=== PATIENT | female | born 1995 | race Caucasian/White ===

== ENCOUNTER → 2017-07-07 | Outpatient (CLI) | payer BC ==
[~2017-07-07] MED LIST: DOXY1TAB6 PO
== END | disposition home or self-care (01) ==
LOC: C.PAPS 11:23
PROVIDERS: ATTEND Physician Assistant
DX: Z01.419 Encounter for gynecological examination (general) (routine) without abnormal findings (principal)

== ENCOUNTER → 2017-08-21 | Outpatient (CLI) | payer BC, OTHER ==
--- NOTE | 2017-08-21 16:26 | DIAGNOSTIC IMAGING REPORT ---
KUB HISTORY: ACUTE RIGHT FLANK PAIN COMPARISON: None. FINDINGS: The bowel gas pattern is unremarkable. There are no dilated loops of small bowel to suggest an obstruction. No renal calculi. No ureteral calculi. No pneumoperitoneum or pneumatosis. IMPRESSION: No renal or ureteral stones. Electronically signed by: Hubert Newton M.D. 08/21/2017 4:25 PM Dictated Date/Time: 08/21/2017 4:24 PM
== END | disposition home or self-care (01) ==
LOC: C.RAD1850 15:58
PROVIDERS: ATTEND Internal Medicine
DX: R10.9 Unspecified abdominal pain (principal)

== ENCOUNTER → 2017-08-21 | Outpatient (CLI) | payer BC, OTHER ==
[2017-08-21 18:21] LABS: URINE APPEARANCE CLOUDY (CLEAR); URINE BILIRUBIN NEG (NEG); URINE COLOR YELLOW; URINE EPITHELIAL CELL AUTO >30 /lpf (0-5); URINE NITRITE NEG (NEG); URINE SPECIFIC GRAVITY 1.017 (1.000-1.030); UROBILINOGEN NEG (NEG); ZZUR CULT IF INDIC CLEAN CATCH YES
[2017-08-21 18:23] LABS: MANUAL MICROSCOPIC REQUIRED? NO; REVIEW REQ? NO
== END | disposition home or self-care (01) ==
LOC: C.LABSPEC 17:13
PROVIDERS: ATTEND Internal Medicine
DX: R35.0 Frequency of micturition (principal)

== ENCOUNTER → 2017-10-09 | Outpatient (CLI) | payer BC | END | disposition home or self-care (01) | LOC: C.LABBC 13:02 | PROVIDERS: ATTEND Internal Medicine | DX: R35.0 Frequency of micturition (principal) ==

== ENCOUNTER → 2018-04-24 | Outpatient (CLI) | payer BC | END | disposition home or self-care (01) | LOC: C.LAB 17:32 | PROVIDERS: ATTEND Nurse Practitioner Family | DX: R31.0 Gross hematuria (principal) ==

== ENCOUNTER → 2018-05-14 | Outpatient (CLI) | payer BC ==
[~2018-05-14] MED LIST changes: +OPTIRAY 320 IV PRN
--- NOTE | 2018-05-14 14:27 | DIAGNOSTIC IMAGING REPORT ---
CT UROGRAM CLINICAL HISTORY: Gross hematuria. Painful micturition. COMPARISON STUDY: Abdominal CT dated 09/26/2013. TECHNIQUE: Before and following the IV administration of 119 cc of Optiray 320, CT urogram of the abdomen and pelvis is performed from the lung bases to the proximal femora. Images are reviewed in the axial, sagittal, and coronal planes. IV contrast was administered without complication. A dose lowering technique was utilized adhering to the principles of ALARA. CT DOSE: 1286.68 mGycm FINDINGS: Lung bases: The heart is normal in size and without pericardial effusion. The lung bases are clear. Liver: The contrast-enhanced liver is normal in size, contour, and attenuation. There is no intrahepatic biliary ductal dilatation. The hepatic veins and portal veins are patent. Gallbladder: Unremarkable. Spleen: Normal in size and attenuation. Pancreas: Unremarkable. Adrenal glands: Unremarkable. Kidneys and ureters: The contrast enhanced kidneys are normal in size and without hydronephrosis. There are no renal calculi identified on the unenhanced images. The kidneys enhance and excrete symmetrically. There is no enhancing renal cortical mass lesion identified. A subcentimeter cortical hypodensity in the right kidney likely represents a cyst but is too small for definitive characterization. There is no evidence of urothelial lesion within the renal pelvis bilaterally or along the course of either ureter. Abdominal vasculature: The abdominal aorta is normal in course and caliber. Bowel: The small bowel and colon are normal in course and caliber. The appendix is well-visualized and normal. Peritoneum: There is no intraperitoneal free air or abdominal ascites. There is a small fat-containing umbilical hernia. Lymphadenopathy: None. Pelvic viscera: The bladder, uterus, and adnexa are normal as visualized. There are bilateral ovarian follicles. Trace fluid is seen in the cul-de-sac. Skeletal structures: No lytic or blastic lesions are seen. IMPRESSION: 1. Normal CT urogram. 2. Trace free fluid in cul-de-sac is nonspecific and likely within physiologic limits. Electronically signed by: Godfrey Thomas M.D. 05/14/2018 2:25 PM Dictated Date/Time: 05/14/2018 2:18 PM
== END | disposition home or self-care (01) ==
LOC: C.CTS 13:41
PROVIDERS: ATTEND Urology
DX: R31.0 Gross hematuria (principal)

== ENCOUNTER 2024-05-09 05:49 | Inpatient (IN) ==
--- NOTE | 2024-05-06 15:33 | Anesthesiology Consultation ---
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 Chart Review Chart Review: entry level chemist initiated History Surgery Operation Date: 05/09/24 07:30 Proposed Procedures p Section (Delivery of Baby Through Abdominal Incision) - Kristie Carreno, DO Height/Weight Height: 5 ft 7 in Weight: 112.491 kg Allergies Allergy/AdvReac Type Severity Reaction Status Date / Time No Known Allergies Allergy Unverified 05/06/24 15:05 Medications Home Medications Medication Instructions Recorded Confirmed Last Taken albuterol sulfate 90 mcg/actuation 2 puff inhalation QID PRN sob 05/06/24 05/06/24 Unknown aerosol inhaler aspirin 81 mg capsule 81 mg PO DAILY 05/06/24 05/06/24 Unknown vit no.133-ferrous 1 tab PO DAILY 05/06/24 05/06/24 Unknown fumarate 28 mg-folic acid 800 mcg tablet () Past Medical History Medical History (Updated 05/06/24 @ 15:32 by Annmarie Falk PA-C) Asthma rare use prn inhaler, "only if sick" History of COVID-19 (2021) no hosp; resolved Past Family History Family History Father Hypertension Mother Hypothyroid Denies family history of Ovarian cancer Breast cancer Colorectal cancer Past Surgical History Surgical History S/P tonsillectomy S/P wisdom tooth extraction Social History Smoking Status: Former smoker Do You Dip or Chew Tobacco: No Smoking End Date: quit 08/2023 Hx Alcohol Use: Yes Hx Substance Use: No substance use type: does not use
--- NOTE | 2024-05-08 16:58 | History & Physical Report ---
Date of Service May 08, 2024 Assessment & Plan (1) Breech presentation: Plan: Reviewed consent in detail in office. Questions answered. She is agreeable to proceed with delivery by section. History of Present Illness Chief Complaint: breech presentation Primary Care Provider: SUSY Clifton 28yo with EDC 05/16/24, persistent breech presentation. Rubella -equivocal *offer vaccine PPX BMI 35-39 Beginning of *Growth US at 32 weeks *NSTs weekly at 36wks Low Dose Aspirin *Nulliparity and increase BMI Breech presentation *declines ECV *plan c/s C/S SCHEDULED FOR 05/09/2024 (39 0/7) WITH DR. MARSHALL AND DR. RODRIGUEZ ASSIST Allergies Allergy/AdvReac Type Severity Reaction Status Date / Time No Known Allergies Allergy Unverified 05/08/24 08:40 Home Medications Medication Instructions Recorded Confirmed Type albuterol sulfate 90 mcg/actuation 2 puff inhalation QID PRN sob 05/06/24 05/08/24 History aerosol inhaler aspirin 81 mg capsule 81 mg PO DAILY 05/06/24 05/08/24 History vit no.133-ferrous 1 tab PO DAILY 05/06/24 05/08/24 History fumarate 28 mg-folic acid 800 mcg tablet () Patient History Medical History Asthma rare use prn inhaler, "only if sick" History of COVID-19 (2021) no hosp; resolved Surgical History S/P tonsillectomy S/P wisdom tooth extraction Family History Father Hypertension Mother Hypothyroid Denies family history of Ovarian cancer Breast cancer Colorectal cancer Social History Smoking Status: Former smoker Tobacco Type: Cigarettes Second Hand Exposure: No; Do You Dip or Chew Tobacco: No; Hx Alcohol Use: Yes Hx Substance Use: No Preferred Language: Italian Communication Ability: Effective Birth Attendant Required: No Beliefs That Will Affect Care: None marital status: marital status details: Jose Monzon (29) [phone] Current Living Situation: Spouse Current Living Situation Comment: lives with spouse current occupational status: employed 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 No s/s chorio or abruption. Skin: no rashes, warm and dry Psychiatric: A+Ox3, euthymic affect Coding Level of Care Code None Diagnoses Breech presentation O32.1XX0
[2024-05-09] MEDS: LACTATED RINGER'S 1,000 ML IV SCH ×3 (06:10→21:11)
[2024-05-09 06:25] LABS: Basophils # (auto) 0.02 K/uL (0.00-0.20); Basophils % (auto) 0.2 %; Eosinophils # (auto) 0.07 K/uL (0.00-0.50); Eosinophils % (auto) 0.8 %; Hematocrit (blood only) 32.7 % (37.0-47.0); Hemoglobin 11.4 g/dl (12.0-16.0); Immature Granulocytes # (auto) 0.03 K/uL (0.01-0.20); Immature Granulocytes % (auto) 0.3 %; Lymphocytes # (auto) 1.84 K/uL (1.20-3.40); Lymphocytes % (auto) 19.8 %; Mean Corpuscular Hemoglobin 31.2 pg (25.0-34.0); Mean Corpuscular Hgb Conc 34.9 g/dL (32.0-36.0); Mean Corpuscular Volume 89.6 fL (80.0-100.0); Mean Platelet Volume 9.7 fL (9.4-12.4); Monocytes # (auto) 0.75 K/uL (0.11-0.59); Monocytes % (auto) 8.1 %; Neutrophils # (auto) 6.59 K/uL (1.40-6.50); Neutrophils % (auto) 70.8 %; Platelet Count 206 K/uL (130-400); RDW Coefficient of Variation 12.8 % (11.5-14.5); RDW Standard Deviation 41.6 fL (36.4-46.3); Red Blood Count 3.65 M/uL (4.20-5.40)
[2024-05-09] MEDS: ACETAMINOPHEN 500 MG TAB PO SCH (06:30)
[2024-05-09] MEDS ORDERED: fentaNYL citrate PF 100 MCG/2 ML VIAL ONE (06:36)
[2024-05-09] MEDS ORDERED: MoRPHine SULFATE PF 1 MG/ML 10 ML AMP/VIAL ONE (06:36)
[2024-05-09] MEDS ORDERED: OXYTOCIN 10 UNITS/ML VIAL ONE (06:36)
[2024-05-09] MEDS ORDERED: PHENYLEPHRINE HCL 10 MG/ML VIAL ONE (06:52)
[2024-05-09] MEDS: ceFAZolin 3000MG 3,000 MG/72.5 ML BAG IV SCH (07:07)
[2024-05-09] MEDS: CITRIC ACID/SODIUM CITRATE 15 ML UDC PO SCH (07:11)
--- NOTE | 2024-05-09 07:22 | History & Physical Bridge Note ---
Date of Service May 09, 2024 History & Physical Bridge Note I have examined the patient, reviewed the History & Physical and in the interval since the performance of the History & Physical I have noted the following changes of clinical significance: no changes noted
[2024-05-09] MEDS ORDERED: NALOXONE HCL 1 MG in SODIUM CHLORIDE 0.9% 1,000 ML IV PRN (07:50)
[2024-05-09] MEDS ORDERED: NALBUPHINE HCL 5 MG in SYRINGE 0 ML IV PRN (07:50)
[2024-05-09] MEDS ORDERED: NALOXONE HCL 0.4 MG/1 ML VIAL/CARP IV PRN (07:50)
[2024-05-09] MEDS ORDERED: NALOXONE HCL 0.08 MG in SYRINGE 1.8 ML IV PRN (07:50)
[2024-05-09] MEDS ORDERED: diphenhydrAMINE 50 MG/ML VIAL IV PRN (07:50)
[2024-05-09] MEDS ORDERED: LACTATED RINGER'S 500 ML IV PRN (07:50)
[2024-05-09] MEDS ORDERED: ONDANSETRON INJ 2 MG/ML 2 ML VIAL IV PRN (07:50)
[2024-05-09] MEDS ORDERED: KETOROLAC 30 MG/ML VIAL IV PRN (07:50)
[2024-05-09] MEDS ORDERED: ePHEDrine sulfate 50 MG/ML AMP IV PRN (07:50)
[2024-05-09] MEDS ORDERED: NO NARCOTICS OR SEDATIVES SCH (08:00)
[2024-05-09] MEDS ORDERED: DC INTRASPINAL MORPHINE SCH (08:00)
[2024-05-09] MEDS ORDERED: ONDANSETRON INJ 2 MG/ML 2 ML VIAL ONE (08:03)
[2024-05-09] MEDS ORDERED: DEXAMETHASONE SOD INJ 4 MG/ML VIAL ONE (08:04)
--- NOTE | 2024-05-09 08:47 | Operative Report ---
Post Operative Report Pre & Post Diagnosis Operation Date: 05/09/24 07:30 Pre: 28yo @ 39 0/7, breech presentation Post: same I identified the patient and participated in the time-out.: Yes Procedure Operation Date: 05/09/24 07:30 Primary low transverse section Surgeon Kristie Carreno DO Substance Addiction Coordinator Fernanda Nick MD Quantitative Blood Loss (QBL) 392 Findings Consistent with Post-Op Diagnosis Normal appearing uterus, tubes, ovaries. Viable female , Apgars 8/8. Weight pending, please see nursery records. Specimens placenta, cord blood, cord gas Drains martinez clear yellow Anesthesia Type Spinal Complications none Disposition Accompanied Patient To Recovery: No Disposition: L&D Indications Breech presentation Description of Procedure The patient was seen in her labor and delivery room, risks benefits and alternatives to surgery were reviewed. Informed consent obtained. Questions were answered. She was taken to the operating room, spinal anesthesia was administered. She was then prepared and draped in the usual sterile fashion in the supine position with a leftward tilt. Timeout was confirmed. A Pfannenstiel skin incision was made with a scalpel, and carried through to the underlying layer of fascia. Fascia was nicked at midline, and this incision was extended bilaterally. The superior aspect of the fascial incision was grasped with Rhonda clamps x2, elevated off the underlying rectus abdominis muscles, and dissected sharply and bluntly. In similar fashion, the inferior aspect of the fascial incision was dissected. The rectus abdominis muscles were , and the peritoneum was entered bluntly digitally. This was extended bilaterally. The bladder flap was taken down carefully using Metzenbaum scissors. Using a new scalpel, a low transverse uterine incision was created. Clear amniotic fluid noted. The was delivered from a breech presentation. The buttocks delivered, followed by both legs, medial sweep of arms, shoulders and head. The cord was doubly clamped and cut, and the was handed off to the waiting housekeeper caregiver. A segment was retained for cord gases. Cord blood was obtained. The placenta was delivered spontaneously intact. The uterus was exteriorized, and cleared of all clots and debris. The hysterotomy incision was reapproximated using 0 Vicryl in a running locked stitch. A second layer of the same suture was used to imbricate the incision. Posterior uterus was evaluated and normal. The uterus was returned to the abdomen, and gutters were cleared of clots and debris. Excellent hemostasis was observed. The fascial incision was reapproximated using 0 Vicryl in a running stitch. The subcutaneous tissue was irrigated, and reapproximated using 2-0 plain gut in a running stitch. The skin was reapproximated using 4-0 Vicryl in a running subcuticular stitch. Steri-Strips and a bandage were applied. The patient tolerated the procedure well, and will be taken to the recovery area in stable and good condition. I attest to the content of the Intraoperative Record and any orders documented therein. Any exceptions are noted below. OB Procedure Charges 51236
--- NOTE | 2024-05-09 09:35 | Anesthesiology Progress Note ---
Date of Service May 09, 2024 Anesthesia Post Procedure Vital Signs Vital Signs: Temp Pulse Resp BP Pulse Ox 05/09/24 09:33 84 97 05/09/24 09:30 77 122/76 05/09/24 09:28 80 97 05/09/24 09:23 76 97 05/09/24 09:20 18 05/09/24 09:20 80 118/75 05/09/24 09:18 82 98 05/09/24 09:13 84 100 05/09/24 09:10 18 05/09/24 09:09 88 113/65 05/09/24 09:08 93 H 99 05/09/24 09:03 81 98 05/09/24 09:01 88 94 05/09/24 09:00 18 05/09/24 08:59 83 111/56 L 05/09/24 08:58 91 H 99 05/09/24 08:53 90 97 05/09/24 08:50 36.8 C 18 05/09/24 08:50 78 105/55 L 05/09/24 08:48 82 97 05/09/24 06:21 86 124/81 05/09/24 05:55 18 05/09/24 05:55 36.4 C L 18 Notes Mental Status: alert / awake / arousable Patient Amnestic to Procedure: Yes Nausea / Vomiting: adequately controlled Pain: adequately controlled Airway Patency, RR, SpO2: stable & adequate BP & HR: stable & adequate Hydration State: stable & adequate Neuraxial Anesthesia: was administered and sensory block is resolving Anesthetic Complications: no major complications apparent
[2024-05-09 09:46] LABS: Cord Venous Blood HCO3 24 mmol/L (18.4-26.8); Cord Venous Blood PCO2 43 mmHg (30.4-57.2); Cord Venous Blood PO2 29 mmHg (14.1-43.3); Cord Venous Blood pH 7.35 (7.20-7.44); O2 Saturation Cord Venous Bld 62.2 % (<68)
[2024-05-09 09:51] LABS: Base Excess Cord Arterial Bld -6.2 mEq/L (-9-1.8); CO2 Cord Arterial Blood 60 mmHg (39.1-73.5); HCO3 Cord Arterial Blood 23 mmol/L (19.7-28.5); Oxygen Sat Cord Arterial Blood < 60.0 % (<60); PO2 Cord Arterial Blood 24 mmHg (4.1-31.7); pH Cord Arterial Blood 7.19 (7.1-7.38)
[2024-05-09] MEDS ORDERED: HYDROCORTISONE ACETATE 25 MG SUPP PR PRN (10:29)
[2024-05-09] MEDS ORDERED: ALBUTEROL HFA 8 GM INHALER INH PRN (10:29)
[2024-05-09] MEDS ORDERED: CALCIUM CARBONATE 500 MG CHEWABLE TAB PO PRN (10:29)
[2024-05-09] MEDS ORDERED: BENZOCAINE 20% SPRY 85 APPLN/85 GM CAN EXT PRN (10:29)
[2024-05-09] MEDS ORDERED: SENNA 8.6 MG TAB PO PRN (10:29)
[2024-05-09] MEDS ORDERED: MAGNESIUM HYDROXIDE SUSP 30 ML UDC PO PRN (10:29)
[2024-05-09] MEDS ORDERED: Nursing to Pharmacy Communication SCH ×2 (10:45→14:15)
[2024-05-09] MEDS: KETOROLAC 30 MG/ML VIAL IV ONE (11:07)
[2024-05-09] MEDS: OXYTOCIN 30 UNITS/LR 1,003 ML IV SCH (11:33)
[2024-05-09] MEDS: SIMETHICONE 80 MG CHEW PO SCH (14:09)
[2024-05-09] MEDS: HYDROmorphone INJ 0.5 MG/0.5 ML SYR IV PRN (14:50)
[2024-05-09] MEDS: IBUPROFEN 600 MG TAB PO SCH (16:23)
[2024-05-09] MEDS: ACETAMINOPHEN 325 MG TAB PO SCH (16:23)
[2024-05-09] MEDS: MoRPHine SULFATE PF 1 MG/ML 10 ML AMP/VIAL INT SPINAL ONE (21:10)
[2024-05-09] MEDS: SODIUM CHLORIDE 0.9% 1,000 ML IV SCH (21:10)
[2024-05-09] MEDS: DOCUSATE SODIUM 100 MG CAP PO SCH (21:10)
[2024-05-09] MEDS: DIPHTHER/TETAN/PERTUS Vaccine (Tdap, Adol/Adult) 0.5mL IM ONE (23:51)
[2024-05-10] MEDS ORDERED: PROMETHAZINE 12.5 MG/50.5 ML BAG IV PRN (01:51)
[2024-05-10] MEDS ORDERED: HYDROmorphone INJ 0.5 MG/0.5 ML SYR IV PRN (01:51)
[2024-05-10] MEDS ORDERED: diphenhydrAMINE 50 MG/ML VIAL IV PRN (01:51)
[2024-05-10] MEDS ORDERED: ONDANSETRON INJ 2 MG/ML 2 ML VIAL IV PRN (01:51)
[2024-05-10] MEDS: oxyCODONE HCL IR 5 MG TAB (IMMEDIATE RELEASE) PO PRN (01:58)
[2024-05-10] MEDS: diphenhydrAMINE Capsule 25 MG CAP PO PRN (02:01)
[2024-05-10 06:35] LABS: Basophils # (auto) 0.02 K/uL (0.00-0.20); Basophils % (auto) 0.2 %; Eosinophils # (auto) 0.07 K/uL (0.00-0.50); Eosinophils % (auto) 0.6 %; Hematocrit (blood only) 28.1 % (37.0-47.0); Hemoglobin 9.5 g/dl (12.0-16.0); Immature Granulocytes # (auto) 0.06 K/uL (0.01-0.20); Immature Granulocytes % (auto) 0.5 %; Lymphocytes # (auto) 2.27 K/uL (1.20-3.40); Lymphocytes % (auto) 20.2 %; Mean Corpuscular Hemoglobin 30.7 pg (25.0-34.0); Mean Corpuscular Hgb Conc 33.8 g/dL (32.0-36.0); Mean Corpuscular Volume 90.9 fL (80.0-100.0); Mean Platelet Volume 9.8 fL (9.4-12.4); Monocytes # (auto) 0.86 K/uL (0.11-0.59); Monocytes % (auto) 7.7 %; Neutrophils # (auto) 7.93 K/uL (1.40-6.50); Neutrophils % (auto) 70.8 %; Platelet Count 190 K/uL (130-400); RDW Coefficient of Variation 12.8 % (11.5-14.5); RDW Standard Deviation 42.1 fL (36.4-46.3); Red Blood Count 3.09 M/uL (4.20-5.40); White Blood Count 11.21 K/ul (4.8-10.8)
--- NOTE | 2024-05-10 07:16 | Obstetrical Progress Note ---
Date of Service <Daniella Thomas MD - Last Filed: 05/10/24 07:16> May 10, 2024 Assessment & Plan <Daniella Thomas MD - Last Filed: 05/10/24 07:16> (1) delivery delivered: - POD #1 Following C section for Breech Presentation in Primi at 39 weeks. - Both mom and baby doing fine. - Ambulated to bathroom , encourage ambulation to corridor today. - Hasn't passed gas but does not feel distended. Bowel sound +( encouraged ambulation) - well; No breast engorgement. - Continue observation today; likely Discharge tomorrow. (2) Breech presentation: - POD #1 <Kristie Carreno DO - Last Filed: 05/10/24 07:23> (1) delivery delivered: (2) Breech presentation: Subjective <Daniella Thomas MD - Last Filed: 05/10/24 07:16> Patient is a 28 yo female P1is POD #1 following delivery for breech at 39 weeks. She reports feeling well overall this morning. She has mild abdominal cramping and 1-2/10 pain well managed on analgesics. Voided after martinez's out. Tolerating regular meals overnight and able to ambulate some. She has not passed gas but feels bowel movement. Persistent lochia with some improvement this morning. Currently . Review of Systems Denies fever, chills, sweats. Denies SOB, difficulty breathing, chest pain, palpitations, and chest pressure. Denies breast pain. Denies dysuria. Denies headache or changes in vision. Physical Exam <Daniella Thomas MD - Last Filed: 05/10/24 07:16> General: Alert and oriented. No acute distress. CV: Regular rate and rhythm. No murmurs. Respiratory: CTA bilaterally. No rhonchi, wheezes, or crackles. No increased work of breathing. Abdomen: Positive bowel sounds. Soft, nontender, and nondistended. Uterus: Fundus firm and palpable few cm below umbilicus. Surgical scar clean and healing well. Lower extremities: No LE edema. No deep calf pain. Rena's negative bilaterally. Results & Data <Daniella Thomas MD - Last Filed: 05/10/24 07:16> Vital Signs (Past 12 Hours) Vital Signs Temp Pulse Resp BP Pulse Ox O2 Del Method 05/10/24 02:57 36.8 C 80 16 133/80 97 Room Air 05/10/24 01:33 18 97 05/09/24 23:50 18 98 05/09/24 23:50 Room Air 05/09/24 23:12 36.7 C 76 18 113/68 98 Room Air Supervising Physician <Kristie Carreno DO - Last Filed: 05/10/24 07:23> Co-Signing Physician Notes Resident Physician Supervision Note: I interviewed and examined the patient. Discussed with Dr. Thomas and agree with findings and plan as documented in the note. Any exceptions or clarifications are listed here: POD#1 doing well. Routine postop care. Documented By: Kristie Carreno DO
[2024-05-10] MEDS: PRENATAL VITAMIN 1 TAB PO SCH (08:31)
[2024-05-10] MEDS: FERROUS SULFATE 325 MG TAB PO SCH (08:32)
[2024-05-10] MEDS: bisacodyL 5 MG TABEC PO SCH (20:13)
[2024-05-11 06:47] LABS: Hematocrit (blood only) 29.2 % (37.0-47.0); Hemoglobin 9.6 g/dl (12.0-16.0)
--- NOTE | 2024-05-11 07:26 | Obstetrical Progress Note ---
Date of Service May 11, 2024 Assessment & Plan (1) delivery delivered: - POD #2 Following C section for Breech Presentation in Primi at 39 weeks. - Both mom and baby doing fine. - Ambulated to bathroom , encourage ambulation more today before dis. - Wound inatct and healthy - Discharge today (2) Breech presentation: Subjective Patient is a 28 yo female P1is POD #2 following delivery at term weeks. She reports feeling well overall this morning. . Tolerating regular meals overnight and able to ambulate some. She [has] [has not] passed gas and [_] bowel movement. Persistent lochia with some improvement this morning. Currently breast feeding. Physical Exam General: Alert and oriented. No acute distress. CV: Regular rate and rhythm. No murmurs. Respiratory: CTA bilaterally. No rhonchi, wheezes, or crackles. No increased work of breathing. Abdomen: Positive bowel sounds. Soft, nontender, and nondistended. Uterus: Fundus firm and palpable few cm below umbilicus. Surgical scar clean and healing well. Lower extremities: No LE edema. No deep calf pain. Rena's negative bilaterally. Results & Data Vital Signs (Past 12 Hours) Vital Signs Temp Pulse Resp BP Pulse Ox O2 Del Method 05/10/24 23:19 36.9 C 85 16 119/80 98 Room Air 05/10/24 20:15 36.7 C 86 16 129/81 100 Room Air
[2024-05-11 07:46] VITALS: BP 126/81; PULSE 79; RESP 18; TEMP 98.2; O2SAT 99
[2024-05-11] MEDS ORDERED: bisacodyL 10 MG SUPP PR PRN (09:36)
[2024-05-11] MEDS: MEASLES, MUMPS & RUBELLA VIRUS VACCINE (MMR) 0.5ML VIAL SQ ONE (11:31)
[2024-05-11] MEDS: MEASLES, MUMPS & RUBELLA VIRUS VACCINE (MMR) 0.5ML VIAL ONE (11:33)
[2024-05-11] MEDS ORDERED: IBUPROFEN 600 MG TAB PO PRN (12:30)
[2024-05-11] MEDS ORDERED: ACETAMINOPHEN 325 MG TAB PO PRN (12:30)
--- NOTE | 2024-05-14 15:31 | Discharge Summary ---
Date of Service May 14, 2024 Admission HPI Per Admitting Provider 28yo with EDC 05/16/24, persistent breech presentation. Rubella -equivocal *offer vaccine PPX BMI 35-39 Beginning of *Growth US at 32 weeks *NSTs weekly at 36wks Low Dose Aspirin *Nulliparity and increase BMI Breech presentation *declines ECV *plan c/s C/S SCHEDULED FOR 05/09/2024 (39 0/7) WITH DR. CARRENO AND DR. RODRIGUEZ ASSIST Admission Exam (Per Admitting) Constitutional WD/WN, vitals as above Respiratory normal respiratory effort, lungs clear to auscultation no respiratory distress Cardiovascular Rate/Rhythm: regular rate and regular rhythm Gastrointestinal (Abdomen) Inspection/Auscultation: abdomen normal to inspection Percussion/Palpation: abdomen soft; abdomen nontender Skin no rashes, warm and dry Psychiatric A+Ox3, euthymic affect Discharge Data Consultations 05/09/24 05:49 Consult Anesthesiology Stat Procedures Performed Operation Date: 05/09/24 07:30 Actual Procedures p Section - Kristie Carreno DO Hospital Course (1) delivery delivered: - POD #1 Following C section for Breech Presentation in Primi at 39 weeks. - Both mom and baby doing fine. - Ambulated to bathroom , encourage ambulation to corridor today. - Hasn't passed gas but does not feel distended. Bowel sound +( encouraged ambulation) - well; No breast engorgement. - Continue observation today; likely Discharge tomorrow. (2) Breech presentation: - POD #1 Supervising Physician Co-Signing Physician Notes Resident Physician Supervision Note: I interviewed and examined the patient. Discussed with Dr. Thomas and agree with findings and plan as documented in the note. Any exceptions or clarifications are listed here: POD#1 doing well. Routine postop care. Documented By: Kristie Carreno DO Coding Level of Care Code None Diagnoses delivery delivered O82 Breech presentation O32.1XX0
== END 2024-05-11 12:30 | disposition home or self-care (01) | DRG 788 ==
LOC: 4S1 05:49 → EDSTATUS 07:30 → 4E2 11:30